=== PATIENT | female | born 1940 | race Caucasian/White ===

== ENCOUNTER → 2018-10-20 11:21 | Outpatient (CLI) | payer MEDICARE, OTHER, SELFPAY ==
--- NOTE | 2018-10-20 | DI.MRI.S_ITS ---
PROCEDURE: MR KNEE RT WO CON INDICATIONS: ACUTE PAIN OF RIGHT KNEE TECHNIQUE: Noncontrast sagittal PD fast spin echo and T2 fast spin echo with fat saturation, sagittal 3-D FLASH with fat saturation; coronal T1 spin echo and PD fast spin echo with fat saturation, and axial PD fast spin echo with fat saturation through the knee. COMPARISON: [facility] [place], [place], XR KNEE ARTHRITIC SERIES RT, 10/12/2018, 8:44. FINDINGS: Image quality: Diagnostic. Bones and joint: There is no acute fracture or dislocation. No suspicious osseous lesions are evident. No significant knee joint effusion is identified. There is no Garcia's cyst. No significant degenerative changes of the knee are evident. The hyaline articular cartilage is intact within all 3 compartments. Mild heterogeneity of the patellofemoral hyaline articular cartilage is noted. Cruciate ligaments: The cruciate ligament is thickened and demonstrates slight increased signal. The posterior cruciate ligament is intact and otherwise unremarkable. Menisci: No displaced tears of the medial and lateral menisci are evident. The posterior root ligaments are intact. Medial structures: There is a moderate grade partial thickness tear identified involving the anterior aspect of the proximal medial collateral ligament with overlying soft tissue edema. The semimembranosus tendon insertion is intact. The imaged portions of the pes anserinus tendons are unremarkable. No significant fluid is contained within the pes anserinus bursa. Lateral structures: The popliteal tendon is mildly edematous at its origin. The lateral collateral ligament proper (fibular collateral ligament) and the proximal tibiofibular ligaments are intact. The distal aspect of the biceps femoris tendon and the iliotibial band are intact. Anterior structures: The quadriceps and patellar tendons are intact. However, the lateral aspect of the proximal patellar tendon is noted to extend over the anterior margin of the lateral femoral condyle demonstrates slight increased signal at this location. There is mild edema within the underlying superolateral margin of the infrapatellar fat pad. IMPRESSION: 1. Moderate grade partial-thickness tear of the medial collateral ligament. 2. Possible low-grade sprain of the anterior cruciate ligament. 3. Mild proximal patellar tendinopathy. Given its extension over the anterior margin of the lateral femoral condyle, clinical correlation for possible lateral femoral condyle-patellar tendon friction syndrome is recommended. 4. Mild proximal popliteal tendinopathy. Dictated by: Robin Fitch M.D. on 10/20/2018 at 13:59 Approved by: Robin Fitch M.D. on 10/20/2018 at 14:02
== END ==
PROVIDERS: Family Provider Family Medicine; PCP Family Medicine; Visit Provider Orthopaedic Surgery
DX: M25.561 Pain in right knee (principal); S83.411A Sprain of medial collateral ligament of right knee, initial encounter
CPT/HCPCS: 73721

== ENCOUNTER → 2018-12-28 08:24 | Outpatient (CLI) | payer MEDICARE, OTHER, SELFPAY ==
--- NOTE | 2018-12-28 | DI.US.S_ITS ---
PROCEDURE: US ABD AORTA ANEURYSM SCREEN INDICATIONS: ABDOMINAL AORTIC ANEURYSM SCREENING TECHNIQUE: Real time scanning was performed of the aorta and iliac arteries, with image documentation. COMPARISON: None. FINDINGS: Aorta: Proximal aortic diameter measures 2.2 cm. Mid-aorta measures 1.4 cm. Distal aortic diameter is 1.4 cm. Iliac arteries: Right common iliac artery measures 1 cm. Left common iliac artery measures 1 cm. IMPRESSION: Negative for aneurysm. Dictated by: Gary Soler M.D. on 12/28/2018 at 12:18 Approved by: Gary Soler M.D. on 12/28/2018 at 12:18
== END ==
PROVIDERS: PCP Internal Medicine; Visit Provider Internal Medicine
DX: Z13.6 Encounter for screening for cardiovascular disorders (principal)
CPT/HCPCS: 76706

== ENCOUNTER → 2019-07-13 14:23 | Outpatient (ROUT) | payer MEDICARE, OTHER, SELFPAY ==
[2019-07-13 14:39] LABS: BUN Creatinine Ratio 31.7 (6-22); Blood Urea Nitrogen 19 mg/dL (7-17); Calcium 9.5 mg/dL (8.4-10.2); Carbon Dioxide 28 mmol/L (22-32); Chloride 106 mmol/L (98-107); Cholesterol 198 mg/dL (140-199); Estimated Glomerular Filt Rate > 60.0 mL/min (>60); Glucose 142 mg/dL (80-110); HDL Cholesterol 56 mg/dL (40-60); HEMOLYSIS < 15 (0-50); LDL Cholesterol Calculated 121 mg/dL (<100); Potassium 4.5 mmol/L (3.4-5.1); Sodium 141 mmol/L (137-145); Triglycerides 107 mg/dL (35-150)
== END ==
PROVIDERS: PCP Internal Medicine; Visit Provider Internal Medicine
DX: Z13.220 Encounter for screening for lipoid disorders (principal); E11.42 Type 2 diabetes mellitus with diabetic polyneuropathy
CPT/HCPCS: 80048; 80061

== ENCOUNTER → 2019-07-21 09:44 | Outpatient (CLI) | payer MEDICARE, OTHER, SELFPAY | PROVIDERS: PCP Internal Medicine; Visit Provider Internal Medicine | DX: M85.88 Other specified disorders of bone density and structure, other site (principal); Z78.0 Asymptomatic menopausal state; Z90.722 Acquired absence of ovaries, bilateral | CPT/HCPCS: 77080 ==